=== PATIENT | male | born 1940 | race Caucasian/White ===

== ENCOUNTER 2024-05-25 15:00 | Outpatient (RCR) | payer MEDICARE, SELFPAY ==
--- NOTE | 2024-04-15 18:33 | HP.PTEVAL ---
Patient's Visit Information Visit Information Visit Information: LON BAUTISTA is a 83 year old M referred to Physical Therapy by Dr. Taj Jenkins MD with a diagnosis of LOW BACK PAIN ,SCOLIOSIS ,TROCHANTERIC BURITIS. Date of Evaluation: 04/15/24 Physical Therapist: Lon Ocampo, PT, Cert MDT, OCS Visit Plan Frequency: 2-3x /Week Duration: 6-8 WEEKS Plan: PT INTERVENTIONS DLS ,POSTURAL EX'S ,FLEXABILITY HIP , STRENGTHENING HIP GLUT MEDIUS STICK IT BAND AND US Subjective Subjective: This 83 y/o male presents to physical therapy with low back pain and hip pain. Patient has had lumbar pain for many years . Patient symptoms worse about [address] Jenkins had x-rays DDD ,scoliosis. Recommended PT 6 weeks and symptoms are result of bursitis. Patient has no medication. Patient seen [facility] for back treatment. Patient pain located symmetrical lumbar right buttock and lateral IT band and symptom to foot. Symptoms in leg is constant If PT doesn't help possible MRI. Patient aggravating factors walking/standing 10mins . Alleviating factors bending ,sitting. Coughing/sneezing-. Denies paresthesia/tingling -. Sleeping good. Patient sees chiropractor 50 years. No prior PT. Patient condition affects QOL and function . Patient goals to decrease pain. SOCIAL: VOCATION: retired Pain Bilateral Back: Pain Intensity (Out of 10): 5 Pain Intensity Range: 10 Objective Objective: POSTURE: mild forward posture ,scoliosis GAIT: ambulates with mild forward slow wilman PALPATION: mild tender IT BAND NEURO: denies paresthesia/tingling GAIT: ambulates with antalgic gait right side FLEXABILITY: hamstrings min tight ,piriformis mod tight LUMBAR ROM: flexion min loss ,extension loss pain ,faina glides mod loss MMT: quads/hams 4/5 ,( peak force) hip flexion 23.9 right ,left 24.9 ,hip abd 0 ,left 24.4 ,ankle 4/5 Special Tests L/S Slump test left side: Negative L/S Slump test right side: Negative L/S Left Straight Leg Raise: Negative L/S Right Straight Leg Raise: Negative Balance/Special Test Scores Oswestry Low Back Score: 28 Goals Goal 1:: Patient to be I with HEP Goal Time Frame: 4-6 Weeks Goal 2:: Patient to demonstrate 50% improvement with less pain and improved function Goal Time Frame: 4-6 Weeks Goal 3:: Patient to improve lumbar ROM for function of activity for ADLS Goal Time Frame: 4-6 Weeks Goal 4:: Patient to improve back oswestry score by 5 points to improve ADL'S Goal 5:: Patient to improve peak force hips by 5-10# to improve gait Goal Time Frame: 4-6 Weeks Rehabilitation Potential Physical Therapy Diagnosis: Patient has back pain along with hip pain with weakness in glut medius right with tender IT band thus patient worse with walking /standing better with sitting thus benefit from skilled PT Rehabilitation Potential: Good Anticipated Interventions Patient/Client Instruction: Educate patient on: Condition and Plan of Care For the Purpose of:: To decrease pain, To increase ROM, To improve muscle performance and motor function, To improve ability to perform ADL's, To increase tolerance to activity/condition/position, To improve ability of physical actions for home/community/work/leisure, To improve health of tissue, To decrease soft tissue restriction, To increase flexibility/ROM, To reduce risk of recurrence and To prevent re-injury Therapeutic Exercise to Include: Strength training, Postural training, Flexibilty training and Dynamic Lumbar Stabilization Comment: RIGHT HIP For the Purpose of:: To decrease pain, To increase ROM, To improve muscle performance and motor function, To improve ability to perform ADL's, To increase tolerance to activity/condition/position, To improve ability of physical actions for home/community/work/leisure, To improve health of tissue, To decrease soft tissue restriction and To increase flexibility/ROM Manual Therapy Techniques to Include: Soft tissue mobilization Comment: I TBAND For the Purpose of:: To decrease pain and To increase ROM Text: Thank you for the opportunity to evaluate your patient. For Medicare and Medicare HMO plans, please review the plan of care and approve it. It will need to be FAXED BACK to us at [phone] for Medicare purposes. For Medicare only, by signing this I certify the plan of care. Please let me know if there are questions or concerns regarding this plan of care. Physician Signature: Date:
--- NOTE | 2024-05-25 15:30 | HP.PTDCSUM ---
Discharge Summary D/C summary: It has been my pleasure to treat LON BAUTISTA referred by Dr. Taj Jenkins MD, with the diagnosis of LOW BACK PAIN ,SCOLIOSIS ,TROCHANTERIC BURITIS for a total of 8 visit(s). Discharge Date: 05/25/24 Please see the following information for a summary of their discharge status. Subjective Subjective: Will See DR Jenkins tomorrow PT helped with pain in RIGHT leg ,pain is in right back Pain Bilateral Back: Pain Intensity (Out of 10): 2 Overall Improvement % Improvement: 80 Objective Objective/Function: POSTURE: mild forward posture ,scoliosis GAIT: ambulates with mild forward slow wilman PALPATION: mild tender IT BAND NEURO: denies paresthesia/tingling GAIT: ambulates with normal wilman FLEXABILITY: hamstrings min tight ,piriformis mod tight LUMBAR ROM: flexion WFL ,extension min loss pain ,side glides min MMT: quads/hams 4/5 ,( peak force) hip flexion 35.9 right ,left 36.9 ,hip abd 28.7 ,left 24.4 ,ankle 4/5 Goals Goal 1:: Patient to be I with HEP Goal Progress: Goal Met Goal 2:: Patient to demonstrate 50% improvement with less pain and improved function Goal Progress: Goal Met Goal 3:: Patient to improve lumbar ROM for function of activity for ADLS Goal Progress: Goal Met Goal 4:: Patient to improve back oswestry score by 5 points to improve ADL'S Goal Progress: Goal Met Goal 5:: Patient to improve peak force hips by 5-10# to improve gait Goal Progress: Goal Met Plan Plan: D/C D/C Information Discharge Comments: HEP d/c sentence: If there are questions or concerns regarding this patient's physical therapy, please feel free to call me at [phone]. Thank you for the referral of this patient. Sincerely, Lon Ocampo, PT, Cert MDT, OCS Balance/Gait/Functional tests Balance/Special Test Scores Oswestry Low Back Score: 7 Improvement % Improvement: 80
== END 2024-05-25 19:00 | disposition home or self-care (01) ==
LOC: PT 15:00
PROVIDERS: Visit Provider Orthopaedic Surgery
DX: M54.50 Low back pain, unspecified (principal); M70.60 Trochanteric bursitis, unspecified hip; M41.9 Scoliosis, unspecified
CPT/HCPCS: 97110; 97162